=== PATIENT | female | born 1990 | race Caucasian/White ===

== ENCOUNTER → 2018-05-21 | Outpatient (CLI) | payer BC ==
[~2018-05-21] MED LIST: ATARAX,VISTARIL10 MG PO; ATARAX25 MG PO; BACTRIM DS 8001 TA1 PO; KENALOG TP; LOMOTIL 0.025 M1 TA1 PO; MOTRIN800 MG PO; PREDNISONE10 MG PO; SPRINTEC 35 MCG1 TA1 PO; ZOFRAN ODT4 MG SL
== END | disposition home or self-care (01) ==
LOC: US 05-06 13:00
DX: Z34.81 Encounter for supervision of other normal pregnancy, first trimester (principal); Z3A.01 Less than 8 weeks gestation of pregnancy

== ENCOUNTER → 2019-11-02 | Outpatient (CLI) | payer BC | LOC: RAD 09:30 | DX: R06.02 Shortness of breath (principal) ==

== ENCOUNTER → 2020-04-26 | Outpatient (CLI) | payer BC | LOC: COVID19 04-25 00:13 | PROVIDERS: ATTEND Nurse Practitioner Family | DX: R05 Cough (principal); R06.02 Shortness of breath; R06.2 Wheezing; R09.81 Nasal congestion; Z20.828 Contact with and (suspected) exposure to other viral communicable diseases ==

== ENCOUNTER → 2020-06-13 | Outpatient (CLI) | payer BC, OTHER | END | disposition home or self-care (01) | LOC: COVID19 12:30 | PROVIDERS: ATTEND Nurse Practitioner Family | DX: R05 Cough (principal); R06.02 Shortness of breath; R09.81 Nasal congestion; Z20.828 Contact with and (suspected) exposure to other viral communicable diseases ==

== ENCOUNTER 2021-11-27 11:39 | Emergency (ER) | payer OTHER ==
[~2021-11-27] VITALS: Wt 86.6 kg
[2021-11-27 12:33] LABS: BASO % 0.4 % (0.0-1.0); EOS # 0.2 10*3/uL (0.0-0.4); EOS % 1.6 % (1.0-4.0); HEMATOCRIT 40.4 % (37.0-47.0); LYMPH # 2.6 10*3/uL (1.3-4.4); MEAN CELL VOLUME 88.2 fl (81.0-99.0); MEAN CORPUSCULAR HGB 29.3 pg (27.0-31.0); MEAN CORPUSCULAR HGB CONC 33.2 g/dl (33.0-37.0); MEAN PLATELET VOLUME 8.7 fl (9.6-12.3); MONO # 0.6 10*3/uL (0.1-1.0); MONO % 5.7 % (3.0-9.0); NEUT # 6.3 10*3/uL (2.3-7.9); PLATELET COUNT AUTOMATED 418 10*3/uL (130-400); RED BLOOD COUNT 4.58 10*6/uL (4.10-5.10); WHITE BLOOD COUNT 9.6 10*3/uL (4.8-10.8)
[2021-11-27 12:46] LABS: BILIRUBIN Negative (Negative); BLOOD Negative (Negative); CLARITY Clear (Clear); COLOR Yellow (Yellow); GLUCOSE Negative (Negative); KETONE Negative (Negative); LEUKO ESTERASE Negative (Negative); NITRITE Negative (Negative); PH 6.5 (4.5-8.0); SPECIFIC GRAVITY <= 1.005 (1.001-1.030); UROBILINOGEN 0.2 E.U./dl (0.0-1.0)
[2021-11-27 12:55] LABS: WBC 0-2 wbc/hpf (0-5)
[2021-11-27 12:57] LABS: ALKALINE PHOSPHATASE 66 U/L (45-117); BUN 9 mg/dl (7-24); CHLORIDE 107 mmol/L (98-107); CREATININE 0.66 mg/dL (0.55-1.02); POTASSIUM 3.8 mmol/L (3.5-5.1); SGOT/AST 14 IU/L (3-35); SGPT/ALT 31 U/L (12-78); SODIUM 140 mmol/L (136-145); TOTAL PROTEIN 7.8 gm/dL (6.4-8.2)
[2021-11-27 12:59] LABS: B-hCG (QUALITATIVE) NEGATIVE (NEGATIVE)
== END 2021-11-27 17:09 | disposition home or self-care (01) ==
LOC: ED 11:39
PROVIDERS: Physician Assistant
DX: R10.9 Unspecified abdominal pain (principal)

== ENCOUNTER → 2021-12-06 | Outpatient (CLI) | payer OTHER | END | disposition home or self-care (01) | LOC: US 09:00 | PROVIDERS: ATTEND Nurse Practitioner Women's Health | DX: N93.9 Abnormal uterine and vaginal bleeding, unspecified (principal) ==